=== PATIENT | female | born 1990 | race Caucasian/White ===

== ENCOUNTER 2018-04-28 12:25 | Day surgery (SDC) | payer BC ==
[~2018-04-28 12:25] MED LIST: DEXAMETHASONE SOD PHOSPHATE INJ 4 MG/1 ML VIAL ONE; GLYCOPYRROLATE 1 MG/5 ML SYRINGE ONE; NEOSTIGMINE METHYLSULFATE 10 MG/10 ML VIAL ONE; ONDANSETRON HCL INJ/PF 4 MG/2 ML SDV ONE
[2018-04-28] MEDS ORDERED: ONDANSETRON HCL INJ/PF 4 MG/2 ML SDV IV ONE (12:48)
[2018-04-28] MEDS ORDERED: KETOROLAC TROMETHAMINE INJ/PF 30 MG/1 ML SDV IV ONE (12:49)
--- NOTE | 2018-04-28 12:51 | ER Document Report ---
ED Medical Screen (RME) - General Chief Complaint: Abdominal Pain Stated Complaint: ABDOMINAL PAIN Time Seen by Provider: 04/28/18 12:48 Notes: Patient has had pain in the upper abdomen since earlier this morning. She thought it might be because she was hungry associate lunch and that made the pain worse. She tried some Pepto-Bismol without relief. Says the pain is coming and very sharp waves. Starts in the epigastric region and goes around to the sides on both sides. Is nauseated but not vomiting. No change in bowel habits. No UTI symptoms. No fevers. Patient had a baby by 10 months ago. She resumed her menstrual cycle after about 6 months, but it has been irregular and a couple of times a month ever since it started back. She is on no control. TRAVEL OUTSIDE OF THE [place] IN LAST 30 DAYS: No - Related Data Allergies/Adverse Reactions: Penicillins Allergy (Verified 04/28/18 12:27) Past Medical History - Social History Chew tobacco use (# tins/day): No Frequency of alcohol use: None Drug Abuse: None Renal/ Medical History: Denies: Hx Peritoneal Dialysis Past Surgical History: Reports: Hx Section - x1 Physical Exam - Vital signs Vitals: Temp Pulse Resp BP Pulse Ox 97.9 F 85 16 124/81 97 04/28/18 12:30 04/28/18 12:30 04/28/18 12:30 04/28/18 12:30 04/28/18 12:30 Course - Vital Signs Vital signs: Temp Pulse Resp BP Pulse Ox 97.9 F 85 16 124/81 97 04/28/18 12:30 04/28/18 12:30 04/28/18 12:30 04/28/18 12:30 04/28/18 12:30
[2018-04-28 13:14] LABS: ABSOLUTE EOSINOPHILS # (AUTO) 0.1 10^3/uL (0.0-0.6); ABSOLUTE LYMPHOCYTES (AUTO) 1.5 10^3/uL (0.5-4.7); ABSOLUTE MONOCYTES (AUTO) 0.3 10^3/uL (0.1-1.4); ABSOLUTE NEUT (AUTO) 3.6 10^3/uL (1.7-8.2); BASOPHILS % (AUTO) 0.6 % (0-2); HEMATOCRIT 37.2 % (36.0-47.0); HEMOGLOBIN 12.4 g/dL (12.0-15.5); LYMPHOCYTES % (AUTO) 26.8 % (13-45); MEAN CORPUSCULAR HEMOGLOBIN 27.4 pg (27.0-33.4); MEAN CORPUSCULAR HGB CONC 33.4 g/dL (32.0-36.0); MEAN CORPUSCULAR VOLUME 82 fl (80-97); MONOCYTES % (AUTO) 5.2 % (3-13); PLATELET COUNT 236 10^3/uL (150-450); RED BLOOD COUNT 4.53 10^6/uL (3.72-5.28); SEGMENTED NEUTROPHILS % (AUTO) 65.4 % (42-78); TOTAL CELLS COUNTED % (AUTO) 100 %; WHITE BLOOD COUNT 5.6 10^3/uL (4.0-10.5)
[2018-04-28 13:37] LABS: ALANINE AMINOTRANSFERASE 25 U/L (9-52); ALBUMIN 4.2 g/dL (3.5-5.0); ALKALINE PHOSPHATASE 85 U/L (38-126); ANION GAP 11 (5-19); ASPARTATE AMINO TRANSFERASE 46 U/L (14-36); BILIRUBIN,DIRECT 0.3 mg/dL (0.0-0.4); BILIRUBIN,TOTAL 0.4 mg/dL (0.2-1.3); BLOOD UREA NITROGEN 12 mg/dL (7-20); CALCIUM 8.9 mg/dL (8.4-10.2); CARBON DIOXIDE 26 mmol/L (22-30); CHLORIDE 105 mmol/L (98-107); GLUCOSE 109 mg/dL (75-110); LIPASE 99.4 U/L (23-300); SODIUM 141.9 mmol/L (137-145)
[2018-04-28] MEDS ORDERED: MAG HYDROX/AL HYDROX/SIMETH SUSP 30 ML UDCUP PO ONE (13:40)
[2018-04-28] MEDS ORDERED: LIDOCAINE 2% VISCOUS SOLN 20 ML UDCUP PO ONE (13:40)
[2018-04-28] MEDS ORDERED: METOCLOPRAMIDE HCL ORAL SOLN 10 MG/10 ML UDCUP PO ONE (13:40)
--- NOTE | 2018-04-28 13:40 | ER Document Report ---
ED General - General Chief Complaint: Abdominal Pain Stated Complaint: ABDOMINAL PAIN Time Seen by Provider: 04/28/18 12:48 Mode of Arrival: Ambulatory Information source: Patient TRAVEL OUTSIDE OF THE [place] IN LAST 30 DAYS: No - HPI Notes: 27-year-old female 1 para 1 presents to the ED with complaints of sudden onset right upper quadrant epigastric tenderness that started this morning, worse after eating lunch today. Denies any recent travel, new medications or new foods, states she has had nausea and vomiting. Denies any diarrhea. Denies radiation of pain. Has not tried any [id number] medications besides Tums without relief. Pain is sharp, 7 out of 10 and last for approximately 30-40 minutes and then comes back. 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 Denies any coffee-ground emesis or melena. Denies fevers, chills, chest pain,palpitations, shortness of breath, dyspnea, hematuria,blurred vision, double vision, loss of vision, speech changes , LH, dizziness, syncope, headaches, wheezing, ST, URI, neck pain, weakness, bowel or bladder dysfunction, saddle anesthesia, numbness or tingling in bilateral upper or lower extremities equally, muscle paralysis, weakness in bilateral upper or lower extremities equally or rash. - Related Data Allergies/Adverse Reactions: Penicillins Allergy (Verified 04/28/18 12:27) Past Medical History - General Information source: Patient - Social History Smoking Status: Never Smoker Chew tobacco use (# tins/day): No Frequency of alcohol use: None Drug Abuse: None Family History: Reviewed & Not Pertinent Patient has suicidal ideation: No Patient has homicidal ideation: No Renal/ Medical History: Denies: Hx Peritoneal Dialysis Past Surgical History: Reports: Hx Section - x1 Review of Systems - Review of Systems Constitutional: No symptoms reported EENT: No symptoms reported Cardiovascular: No symptoms reported Respiratory: No symptoms reported Gastrointestinal: See HPI Genitourinary: No symptoms reported Female Genitourinary: No symptoms reported Musculoskeletal: No symptoms reported Skin: No symptoms reported Hematologic/Lymphatic: No symptoms reported Neurological/Psychological: No symptoms reported Physical Exam - Vital signs Vitals: Temp Pulse Resp BP Pulse Ox 97.9 F 85 16 124/81 97 04/28/18 12:30 04/28/18 12:30 04/28/18 12:30 04/28/18 12:30 04/28/18 12:30 - Notes Notes: PHYSICAL EXAMINATION: GENERAL: Well-appearing, well-nourished and in no acute distress. HEAD: Atraumatic, normocephalic. EYES: Pupils equal round and reactive to light, extraocular movements intact, conjunctiva are normal. ENT: Nares patent, oropharynx clear without exudates. Moist mucous membranes. NECK: Normal range of motion, supple without lymphadenopathy LUNGS: Breath sounds clear to auscultation bilaterally and equal. No wheezes rales or rhonchi. HEART: Regular rate and rhythm without murmurs ABDOMEN: Soft, nondistended abdomen. Right upper quadrant tenderness, positive Casanova sign. no guarding, no rebound. No masses appreciated. No CVA tenderness bilaterally appreciated Female : deferred Musculoskeletal: Normal range of motion, no pitting or edema. No cyanosis. NEUROLOGICAL: Cranial nerves grossly intact. Normal speech, normal gait. Normal sensory, motor exams PSYCH: Normal mood, normal affect. SKIN: Warm, Dry, normal turgor, no rashes or lesions noted. Course - Re-evaluation Re-evalutation: 04/28/18 15:43 27-year-old female is afebrile, vitals stable and in no distress presents to the ED for evaluation for any leukocytosis or anemia. CMP negative for renal dysfunction, noted AST elevated at 46, electrolytes normal. Urinalysis does show a small UTI, will do a urine culture. Patient given GI cocktail for epigastric pain.[id number]-Dr. Chase Styles, surgeon on-call, consulted for bedside evaluation for acute cholecystitis and will require cholecystectomy. States he will be at bedside. Patient remains n.p.o., afebrile, vitals stable and in no distress. All questions and concerns answered by this provider regarding patient's diagnosis and surgery we have bedside to discuss details of surgery with her. Pt will be admitted to surgery service. - Vital Signs Vital signs: Temp Pulse Resp BP Pulse Ox 98.0 F 61 16 106/63 97 04/28/18 16:43 04/28/18 16:43 04/28/18 16:43 04/28/18 16:43 04/28/18 16:43 - Laboratory Result Diagrams: 04/28/18 12:59 04/28/18 12:59 Laboratory results interpreted by me: 04/28/18 04/28/18 12:59 13:16 AST 46 H Urine Urobilinogen 4.0 H Ur Leukocyte Esterase SMALL H Discharge - Discharge Clinical Impression: Cholecystitis Condition: Stable Disposition: ADMITTED INPATIENT Admitting Provider: Surgicalist - Dr. Chase Styles Prescriptions: Famotidine [Pepcid 20 mg Tablet] 20 mg PO BID #12 tablet Referrals: SHASHA MOULTON MD [COMMUNITY BASED STAFF] - Follow up as needed DEDRA CHILDS MD [ACTIVE STAFF] - Follow up as needed
[2018-04-28 13:59] LABS: AMORPHOUS SEDIMENT,URINE TRACE /HPF; APPEARANCE,URINE CLOUDY; BILIRUBIN,URINE NEGATIVE (NEGATIVE); COLOR,URINE YELLOW; GLUCOSE, URINE NEGATIVE (NEGATIVE); KETONES,URINE NEGATIVE (NEGATIVE); LEUKOCYTE ESTERASE,URINE SMALL (NEGATIVE); NITRITE,URINE NEGATIVE (NEGATIVE); PROTEIN,URINE NEGATIVE (NEGATIVE); URINE SPECIFIC GRAVITY 1.023
--- NOTE | 2018-04-28 16:17 | RADIOLOGY REPORT (SQ) ---
EXAM DESCRIPTION: U/S ABDOMEN LIMITED W/O DOP COMPLETED DATE/TIME: 04/28/2018 4:00 pm REASON FOR STUDY: epigastric pain, worse after eating COMPARISON: None. TECHNIQUE: Dynamic and static grayscale images acquired of the abdomen and recorded on PACS. Darino agata selected color Doppler and spectral images recorded. LIMITATIONS: None. FINDINGS: PANCREAS: No masses. Visualized pancreatic duct normal caliber. LIVER: No masses. Echotexture normal. LIVER VASCULATURE: Normal directional flow of the main portal vein and hepatic veins. GALLBLADDER: Sludge. Gallstones -largest 1.7 cm. Thickening of the wall. No pericholecystic edema. ULTRASOUND-DETECTED CASANOVA'S SIGN: Positive. INTRAHEPATIC DUCTS AND COMMON DUCT: CBD and intrahepatic ducts normal caliber. No filling defects. INFERIOR VENA CAVA: Normal flow. AORTA: No aneurysm. RIGHT KIDNEY: Normal size. Normal echogenicity. No solid or suspicious masses. No hydronephrosis. No calcifications. PERITONEAL AND RIGHT PLEURAL SPACE: No ascites or effusions. OTHER: No other significant findings. IMPRESSION: Gallbladder sludge and gallstones. Thickened wall. Positive Casanova's sign. TECHNICAL DOCUMENTATION: JOB ID: [id number] [id number]- All Rights Reserved Reading location - IP/workstation name: [email or web address]
--- NOTE | 2018-04-28 17:36 | PDOC H&P ---
History of Present Illness Patient complains of: Abdominal pain History of Present Illness: JUAN F JIMENEZ is a 27 year old female usual state of excellent health up until earlier today when she began to experience epigastric abdominal discomfort that progressively worsened to severe pain radiating to her flank. Perhaps more so on the right side. She has had nausea and vomiting. No fevers or chills. No jaundice. She has had a prior episode of this sort of pain back in November of this year that that spontaneously resolved. The current episode lasted for several hours. It feels better after pain medications in the ER. Past Medical History Cardiac Medical History: Reports: None Pulmonary Medical History: Reports: None EENT Medical History: Reports: None Neurological Medical History: Reports: None Endocrine Medical History: Reports: None Renal/ Medical History: Reports: None Malignancy Medical History: Reports: None GI Medical History: Reports: None Psychiatric Medical History: Reports: General Anxiety Disorder Hematology: Reports: None Infectious Medical History: Reports: None Past Surgical History Past Surgical History: Reports: Section - x1 10 months ago Social History Smoking Status: Never Smoker Family History Parental Family History Reviewed: Yes Children Family History Reviewed: Yes Sibling(s) Family History Reviewed.: Yes Medication/Allergy Home Medications: Famotidine [Pepcid 20 mg Tablet] 20 mg PO BID #12 tablet 04/28/18 Allergies/Adverse Reactions: Penicillins Allergy (Verified 04/28/18 12:27) Physical Exam Vital Signs: Temp Pulse Resp BP Pulse Ox 98.0 F 61 16 106/63 97 04/28/18 16:43 04/28/18 16:43 04/28/18 16:43 04/28/18 16:43 04/28/18 16:43 Intake & Output 04/27/18 04/28/18 04/29/18 06:59 06:59 06:59 Weight 87 kg General appearance: PRESENT: no acute distress, cooperative Eye exam: PRESENT: conjunctiva pink Respiratory exam: PRESENT: clear to auscultation tila Cardiovascular exam: PRESENT: RRR GI/Abdominal exam: PRESENT: other - Soft, mildly distended, focal tenderness to palpation the right upper quadrant but no peritoneal signs. Extremities exam: PRESENT: other - No swelling. Neurological exam: PRESENT: alert, awake Psychiatric exam: PRESENT: appropriate affect Skin exam: PRESENT: warm Results Laboratory Results: 04/28/18 12:59 04/28/18 12:59 04/28/18 04/28/18 04/28/18 12:59 12:59 12:59 WBC 5.6 RBC 4.53 Hgb 12.4 Hct 37.2 MCV 82 MCH 27.4 MCHC 33.4 RDW 14.0 Plt Count 236 Seg Neutrophils % 65.4 Lymphocytes % 26.8 Monocytes % 5.2 Eosinophils % 2.0 Basophils % 0.6 Absolute Neutrophils 3.6 Absolute Lymphocytes 1.5 Absolute Monocytes 0.3 Absolute Eosinophils 0.1 Absolute Basophils 0.0 Sodium 141.9 Potassium 4.0 Chloride 105 Carbon Dioxide 26 Anion Gap 11 BUN 12 Creatinine 0.68 Est GFR ( Amer) > 60 Est GFR (Non-Af Amer) > 60 Glucose 109 Calcium 8.9 Total Bilirubin 0.4 AST 46 H ALT 25 Alkaline Phosphatase 85 Total Protein 7.0 Albumin 4.2 Lipase 99.4 Serum HCG, Qual NEGATIVE Urine Color Urine Appearance Urine pH Ur Specific [place] Urine Protein Urine Glucose (UA) Urine Ketones Urine Blood Urine Nitrite Ur Leukocyte Esterase Urine WBC (Auto) Urine RBC (Auto) 04/28/18 13:16 WBC RBC Hgb Hct MCV MCH MCHC RDW Plt Count Seg Neutrophils % Lymphocytes % Monocytes % Eosinophils % Basophils % Absolute Neutrophils Absolute Lymphocytes Absolute Monocytes Absolute Eosinophils Absolute Basophils Sodium Potassium Chloride Carbon Dioxide Anion Gap BUN Creatinine Est GFR ( Amer) Est GFR (Non-Af Amer) Glucose Calcium Total Bilirubin AST ALT Alkaline Phosphatase Total Protein Albumin Lipase Serum HCG, Qual Urine Color YELLOW Urine Appearance CLOUDY Urine pH 7.0 Ur Specific [place] 1.023 Urine Protein NEGATIVE Urine Glucose (UA) NEGATIVE Urine Ketones NEGATIVE Urine Blood NEGATIVE Urine Nitrite NEGATIVE Ur Leukocyte Esterase SMALL H Urine WBC (Auto) 6 Urine RBC (Auto) 3 Impressions: Abdomen Ultrasound 04/28/18 14:00 IMPRESSION: Gallbladder sludge and gallstones. Thickened wall. Positive Casanova's sign. Assessment & Plan - Diagnosis (2) Cholecystitis, acute with cholelithiasis Is this a current diagnosis for this admission?: Yes Plan: Plan laparoscopic cholecystectomy. I have discussed with the patient the risk and benefits of the procedure including risk of infection, bleeding, common bile duct and intestinal injury, possibility of conversion to an open procedure , postcholecystectomy diarrhea and mistaken diagnosis. Patient understands and agrees to proceed.
[2018-04-28] MEDS ORDERED: BUPIVACAINE HCL 0.25 % INJ/PF (2.5 MG/1 ML) 30 ML VIAL ONE (19:09)
[2018-04-28] MEDS ORDERED: FENTANYL CITRATE INJ/PF 100 MCG/2 ML AMPUL ONE (20:04)
[2018-04-28] MEDS ORDERED: MIDAZOLAM 2 MG/2 ML INJ ONE (20:04)
[2018-04-28] MEDS ORDERED: HYDROMORPHONE HCL INJ/PF 2 MG/ML AMPULE ONE (20:05)
[2018-04-28] MEDS ORDERED: ACETAMINOPHEN 1,000 MG/100 ML RTUPB IV ONE (20:05)
[2018-04-28] MEDS ORDERED: PROPOFOL INJ 200 MG/20 ML VIAL IV ONE (20:05)
[2018-04-28] MEDS ORDERED: LEVOFLOXACIN 750 MG/D5W RTU 750 MG/150 ML RTUPB IV ONE (23:31)
[2018-04-29] MEDS ORDERED: DIPHENHYDRAMINE HCL 50 MG/ML VIAL IV PRN (00:18)
[2018-04-29] MEDS ORDERED: FENTANYL CITRATE INJ/PF 100 MCG/2 ML AMPUL IV PRN ×3 (00:18)
[2018-04-29] MEDS ORDERED: MEPERIDINE HCL/PF INJ 25 MG/1 ML DISP.SYRIN IV PRN (00:18)
[2018-04-29] MEDS ORDERED: PROMETHAZINE HCL INJ 25 MG/1 ML VIAL IV PRN (00:18)
[2018-04-29] MEDS ORDERED: MORPHINE SULFATE 10 MG/ML INJ IV PRN (00:40)
[2018-04-29] MEDS ORDERED: NORMAL SALINE 1000 ML 1,000 ML IV PRN (00:40)
[2018-04-29] MEDS ORDERED: ONDANSETRON HCL INJ/PF 4 MG/2 ML SDV IV PRN (00:40)
--- NOTE | 2018-04-29 00:40 | Operative Report ---
Operative Report DATE OF SURGERY: 04/29/18 PREOPERATIVE DIAGNOSIS: Cholecystitis POSTOPERATIVE DIAGNOSIS: Acute cholecystitis OPERATION: Laparoscopic cholecystectomy SURGEON: ERMA MARCELO ANESTHESIA: GA TISSUE REMOVED OR ALTERED: Gallbladder COMPLICATIONS: None ESTIMATED BLOOD LOSS: Minimal INTRAOPERATIVE FINDINGS: Thickened wall gallbladder with gallstones PROCEDURE: Informed consent was obtained. Patient was brought to the operating room placed operating table in supine position. After satisfactory induction of general anesthesia, patient's abdomen was prepped and draped in usual sterile fashion. A infraumbilical midline incision was made and dissection carried down to the fascia the peritoneal cavity entered without difficulty. Ramos trocar was inserted. Pneumoperitoneum produced good patient toleration. 5 mm trocar was placed in the subxiphoid location.Two 5 mm trochars were placed in the right subcostal location. The gallbladder was grasped and retracted cephalad over the dome of the liver. The infundibulum of the gallbladder was grasped retracted laterally and inferiorly thus exposing calot's triangle. The cystic duct gallbladder junction was clearly identified. The cystic artery was taken first by clipping and dividing. cystic duct was clipped and divided. There was a posterior branch of the cystic artery which was also clipped and divided. The gallbladder was taken off the gallbladder bed using the hook electrocautery technique. The gallbladder was removed with an Endobag through the Ramos trocar site fascial defect. There was no bile spillage during the case. There was no stone spillage during the case. Operative field was lightly irrigated and irrigant aspirated out. Hemostasis appeared excellent. All trochars were removed under the direct vision a laparoscope to ensure hemostasis. The Ramos trocar site fascial defect was closed with interrupted Vicryl sutures. All skin incisions were closed with subcuticular interrupted Monocryl sutures. Marcaine was injected at the port sites. Patient tolerated procedure well no apparent complications and was taken to the recovery area in stable condition.
[2018-04-29] MEDS ORDERED: SERTRALINE HCL 50 MG TABLET PO SCH (10:00)
[2018-04-29 10:12] VITALS: BP 107/68
[2018-04-29] MEDS ORDERED: HYDROCODONE/ACETAMINOPHEN 5-325 MG TABLET ONE (11:57)
[2018-04-29] MEDS ORDERED: HYDROCODONE/ACETAMINOPHEN 5-325 MG TABLET PO ONE (12:00)
--- NOTE | 2018-05-03 14:12 | PDOC DISCHARGE SUMMARY ---
General - Admit/Disc Date/PCP Discharge Date: 04/29/18 - Discharge Diagnosis (1) Cholecystitis, acute Is this a current diagnosis for this admission?: Yes - Additional Information Resuscitation Status: Full Code Discharge Diet: As Tolerated Discharge Activity: No Lifting Over 10 Pounds Home Medications: Sertraline HCl [Zoloft] 25 mg PO DAILY 04/28/18 History of Present Illness History of Present Illness: JUAN F JIMENEZ is a 27 year old female admitted to the hospital with right upper quadrant pain, nausea, vomiting, and found to have gallstones. He was taken to the operating room for laparoscopic cholecystectomy. Hospital Course Hospital Course: The patient was taken to the operating room for laparoscopic cholecystectomy. She was found to have acute cholecystitis. The patient did well from the operation, and was taken to the floor in stable condition. The patient began ambulating, tolerating a diet, and by 04/29/2018 she had reached maximal hospital benefit and was medically fit for discharge. Physical Exam Vital Signs: Temp Pulse Resp BP Pulse Ox 97.9 F 61 18 107/68 97 04/29/18 10:10 04/29/18 10:10 04/29/18 10:10 04/29/18 10:10 04/29/18 10:10 Results Laboratory Results: 04/28/18 12:59 04/28/18 12:59 Impressions: Abdomen Ultrasound 04/28/18 14:00 IMPRESSION: Gallbladder sludge and gallstones. Thickened wall. Positive Casanova's sign. Qualifiers - * PATIENT BEING DISCHARGED WITH ANY OF THE FOLLOWING DIAGNOSIS: No Plan Discharge Plan: Discharge home. Diet as tolerated. Activity: No lifting greater than 10 pounds 2 weeks. Okay to shower. Wash incisions with soap and water. No tub baths or swimming 2 weeks. [place] 5/325 mg p.o. every 6 hours as needed pain. Time Spent: Less than 30 Minutes
== END 2018-04-29 ==
LOC: ER 12:25 → EH 19:00 → UNDOADMIN 19:00 → OROUT 04-29 00:40 → EH 04-29 01:51 → 2S 04-29 01:51 → UNDODISIN 04-29 12:16
PROVIDERS: ATTEND Surgery
DX: K80.10 Calculus of gallbladder with chronic cholecystitis without obstruction (principal); Z88.0 Allergy status to penicillin
CPT/HCPCS: 99285; 96374; 96375; 36415; 87086; 83690; 84703; 85025; 80053; 81001; 88304 ×2; 76705; 47562; J2250; J1100; J3010; J3490 ×2; J1885; J1170; J2405; J2704; J1956; J0131; 790